=== PATIENT | male | born 1990 | race Caucasian/White ===

== ENCOUNTER 2016-11-15 19:33 | Emergency (ER) | payer BC ==
[2016-11-15 19:49] VITALS: BP 109/66
--- NOTE | 2016-11-15 20:45 | UC ---
FLU HPI - HPI Summary HPI Summary: ONSET OF MYALGIAS, FEVER, NAUSEA AND GARCIA THIS MORNING. NO FLU SHOT THIS SEASON. - History of Current Complaint Chief Complaint: UCGeneralIllness Stated Complaint: FEVER Time Seen by Provider: 11/15/16 20:36 Hx Obtained From: Patient Onset/Duration: Sudden Onset, Lasting Hours, Still Present Severity Currently: Moderate Severity Initially: Moderate Pain Intensity: 8 Pain Scale Used: 0-10 Numeric Associated Signs & Symptoms: Positive: Fever, Myalgia, Headache. Negative: Cough, Vomiting, Diarrhea - Allergy/Home Medications Allergies/Adverse Reactions: Allergies Allergy/AdvReac Type Severity Reaction Status Date / Time Azithromycin [From Zithromax] Allergy Severe Dizziness Verified 11/15/16 19:50 Cefaclor [From Ceclor] Allergy Severe Anaphylatic Verified 11/15/16 19:50 Shock Tetracycline Allergy Severe Anaphylatic Verified 11/15/16 19:50 Shock Esomeprazole [From Nexium] AdvReac Intermediate GI Upset Verified 11/15/16 19:50 PMH/Surg Hx/FS Hx/Imm Hx Cardiovascular History Of: Reports: Cardiac Disorders - EPISODES OF RAPID HEART RATE Psychological History Of: Reports: Anxiety, Depression - Surgical History Surgical History: None - Family History Known Family History: Positive: Hypertension - Social History Alcohol Use: None Substance Use Type: None Smoking Status (MU): Never Smoked Tobacco Have You Smoked in the Last Year: No Review of Systems Constitutional: Fever, Chills, Fatigue Respiratory: Negative Cardiovascular: Negative Gastrointestinal: Other - NAUSEA Musculoskeletal: Myalgia Neurological: Headache All Other Systems Reviewed And Are Negative: Yes Physical Exam Triage Information Reviewed: Yes Appearance: Well-Appearing, No Pain Distress, Well-Nourished Vital Signs: Initial Vital Signs Temp 100.4 F 11/15/16 19:46 Pulse 116 11/15/16 19:46 Resp 18 11/15/16 19:46 BP 109/66 11/15/16 19:46 Pulse Ox 97 11/15/16 19:46 Vital Signs Reviewed: Yes Eyes: Positive: Conjunctiva Clear ENT: Positive: Hearing grossly normal, Pharynx normal, TMs normal Neck: Positive: Supple, Nontender, No Lymphadenopathy Respiratory Exam: Normal Cardiovascular: Positive: Tachycardia Abdomen Description: Positive: Soft Musculoskeletal: Positive: No Edema Neurological: Positive: Alert Psychological: Positive: Age Appropriate Behavior Skin: Negative: rashes Diagnostics - Laboratory Diagnostic Studies Completed/Ordered: RAPID FLU NEGATIVE Flu Course/Dx - Differential Dx/Diagnosis Provider Diagnoses: ACUTE VIRAL SYNDROME Discharge - Discharge Plan Condition: Stable Disposition: HOME Patient Education Materials: Viral Syndrome (ED) Forms: *Work Release Referrals: Raphael Gardner MD [Primary Care Provider] - If Needed Additional Instructions: RAPID FLU NEGATIVE. CONSERVATIVE MGMT. REST, HYDRATE, OTC MEDS NEEDED. VIRAL SYNDROME: The physician has diagnosed a viral infection. Viruses not only cause "colds," but can cause many different symptoms including generalized aching, fever, headache, cough, diarrhea, nausea, vomiting, and fatigue. The treatment, for the most part, is simply relief of symptoms. This means that antibiotics are usually not given. Rest, fluids, pain medications and, occasionally, medication for the specific symptoms that are most bothersome will be prescribed. Contact the physician if you develop any new or unusual symptoms such as severe headache, stiff neck, high fever, chest pain, productive cough, or shortness of breath. You should be rechecked if you don't see marked improvement within seven to 10 days.
== END 2016-11-15 21:26 | disposition home or self-care (01) ==
LOC: UCEAST 19:33
DX: B34.9 Viral infection, unspecified (principal); Z88.1 Allergy status to other antibiotic agents; Z88.8 Allergy status to other drugs, medicaments and biological substances
CPT/HCPCS: 87502; 99211; G0463

== ENCOUNTER 2016-11-17 17:46 | Emergency (ER) | payer BC ==
[2016-11-17] MEDS ORDERED: Ondansetron INJ* 2 MG/ML VIAL IV ONE (18:03)
[2016-11-17] MEDS ORDERED: NS 0.9% 1000 ML* 1,000 ML IV ONE (18:03)
[2016-11-17] MEDS ORDERED: Ketorolac INJ* 30 MG/ML 1 ML VIAL IM ONE (18:03)
[2016-11-17 18:36] LABS: Hematocrit 49 % (42-52); Hemoglobin 16.8 g/dl (14.0-18.0); Mean Corpuscular HGB Conc 34 g/dl (31-36); Mean Corpuscular Hemoglobin 29 pg (27-31); Mean Corpuscular Volume 83 fL (80-94); Mean Platelet Volume 6 um3 (7.4-10.4); Red Cell Distribution Width 13 % (10.5-15); White Blood Count 5.9 10^3/ul (3.5-10.8)
[2016-11-17 18:51] LABS: Albumin 3.8 g/dL (3.2-5.2); BUN/Creatinine Ratio 9.3 (8-20); C Reactive Protein 6.89 mg/L (< 5.00); Calcium 8.5 mg/dL (8.6-10.3); EGFR African American 160.7 (>60); EGFR Non-African American 124.9 (>60); Globulin 2.4 g/dL (2-4); Potassium 3.2 mmol/L (3.5-5.0); Total Bilirubin 0.8 mg/dL (0.2-1.0); Total Protein 6.2 g/dL (6.4-8.9)
[2016-11-17] MEDS ORDERED: Iohexol 300* (CONTRAST) 10 ML SDV IV ONE (20:12)
--- NOTE | 2016-11-17 20:46 | RAD ---
INDICATION: Right lower quadrant pain COMPARISON: None TECHNIQUE: Axial source images were obtained from the hemidiaphragms to the symphysis pubis following administration of oral and intravenous contrast. 112 mL Omnipaque 300 was utilized. Coronal and sagittal reconstructed images were acquired. Lung bases: The lung bases are clear. Liver: The liver is normal in size. There are no masses. There is no ductal dilatation. Gallbladder: There are no calcified gallstones. There is no evidence of wall thickening or pericholecystic fluid. Spleen: The spleen is normal in size. There are no masses. Pancreas: There is no focal pancreatic mass or ductal dilatation. Adrenal glands: There is no evidence of adrenal mass. Kidneys: The kidneys are normal in size and position. There are prompt nephrograms and there is prompt excretion bilaterally. There are no renal parenchymal masses. There is no evidence of nephrolithiasis. Adenopathy: There is no evidence of adenopathy by size criteria. Fluid collections: There are no free or localized fluid collections. Vessels:There are no significant atherosclerotic changes involving the aorta. There is no focal aneurysm. The iliac vessels are normal in caliber. The IVC appears normal. GI tract: There are no acute CT bowel findings. There is no obstruction. The stomach and small bowel appear normal. The lower GI tract is normal. The cecum, ileocecal valve, and terminal ileum appear normal. The appendix is visualized. There is no periappendiceal inflammatory change. Pelvic organs: The prostate and seminal vesicles appear normal Bladder: There are no bladder masses. Abdominal and pelvic soft tissues: The extraperitoneal abdominal and pelvic soft tissues appear normal.. Osseous structures: There are no acute osseous findings. Other: None IMPRESSION: No acute CT findings. No mass or inflammatory changes. The appendix is not visualized. There are no periappendiceal inflammatory changes.
[2016-11-17 20:55] LABS: Urine Bilirubin Negative (Negative); Urine Glucose Negative (Negative); Urine Nitrite Negative (Negative)
[2016-11-17 21:38] VITALS: BP 108/73
--- NOTE | 2016-11-18 13:22 | ED ---
Abdominal Pain/Male - HPI Summary HPI Summary: Patient is an otherwise healthy 26yo M who presents to ED with CC of RLQ pain x4 days. Denies fever. Associated nausea, diarrhea and fatigue. Patient was seen in UC 4 days ago and diagnosed with gastroenteritis, but symptoms have not resolved. Last BM this morning and green in color. Denies changes of eating habits. Denies recent illness. Denies sick contacts and travel. Patient is concerned with appendicitis. Abdominal pain is not associated with food and presents intermittently. While most pain is located in RLQ, patient also has been experiencing pain in suprapubic region. Denies other urinary symptoms. Pain is not worse at a specific time of day. - History of Current Complaint Chief Complaint: EDAbdPain Stated Complaint: ABD PAIN Time Seen by Provider: 11/17/16 17:53 Hx Obtained From: Patient Onset/Duration: Sudden Onset Timing: Intermittent Severity Initially: Mild Severity Currently: Mild Pain Intensity: 2 Pain Scale Used: 0-10 Numeric Location: Discrete At: RLQ, Suprapubic Radiates: No Character: Sharp, Cramping Aggravating Factor(s): Nothing Alleviating Factor(s): Nothing Associated Signs And Symptoms: Positive: Nausea, Diarrhea - Risk Factors Testicular Torsion: Negative Cardiac Risk Factors: Negative - Allergies/Home Medications Allergies/Adverse Reactions: Allergies Allergy/AdvReac Type Severity Reaction Status Date / Time Azithromycin [From Zithromax] Allergy Severe Dizziness Verified 11/15/16 19:50 Cefaclor [From Ceclor] Allergy Severe Anaphylatic Verified 11/15/16 19:50 Shock Tetracycline Allergy Severe Anaphylatic Verified 11/15/16 19:50 Shock Esomeprazole [From Nexium] AdvReac Intermediate GI Upset Verified 11/15/16 19:50 PMH/Surg Hx/FS Hx/Imm Hx Previously Healthy: Yes Cardiovascular History: Reports: Hx Hypertension Psychiatric History: Reports: Hx Anxiety, Hx Depression Infectious Disease History: No Infectious Disease History: Denies: Hx Clostridium Difficile, Hx Hepatitis, Hx Human Immunodeficiency Virus (HIV), Hx of Known/Suspected MRSA, Hx Shingles, Hx Tuberculosis, Hx Known/ Suspected VRE, Hx Known/Suspected VRSA, History Other Infectious Disease, Traveled Outside the [place] in Last 30 Days - Family History Known Family History: Positive: Hypertension - Social History Occupation: Employed Full-time Lives: With Family Alcohol Use: None Hx Substance Use: No Substance Use Type: Reports: None Hx Tobacco Use: No Smoking Status (MU): Never Smoked Tobacco Have You Smoked in the Last Year: No Review of Systems Constitutional: Negative Eyes: Negative Cardiovascular: Negative Positive: Abdominal Pain, Diarrhea, Nausea Positive: no symptoms reported, see HPI Musculoskeletal: Negative Skin: Negative Neurological: Negative Psychological: Normal All Other Systems Reviewed And Are Negative: Yes Physical Exam Triage Information Reviewed: Yes Vital Signs On Initial Exam: Initial Vitals Temp Pulse Resp BP Pulse Ox 98.9 F 93 16 114/73 100 11/17/16 17:46 11/17/16 17:46 11/17/16 17:46 11/17/16 17:46 11/17/16 17:46 Vital Signs Reviewed: Yes Appearance: Positive: Well-Appearing, Well-Nourished Skin: Positive: Warm, Skin Color Reflects Adequate Perfusion Head/Face: Positive: Normal Head/Face Inspection Eyes: Positive: EOMI, ANGELLA Neck: Positive: Nontender, No Lymphadenopathy Respiratory/Lung Sounds: Positive: Clear to Auscultation, Breath Sounds Present Cardiovascular: Positive: Pulses are Symmetrical in both Upper and Lower Extremities Abdomen Description: Positive: Guarding, Other: - suprapubic pain on palpation, RLQ pain on palpation, bowel sounds normal throughout all 4 quadrants slight guarding during examination. no other acute findings. Rovsing negative. Obturator positive. Musculoskeletal: Positive: Strength/ROM Intact Neurological: Positive: Sensory/Motor Intact, Alert, Oriented to Person Place, Time, Speech Normal Psychiatric: Positive: Normal AVPU Assessment: Alert - [place] Coma Scale Coma Scale Total: 15 Diagnostics - Vital Signs Vital Signs Temp Pulse Resp BP Pulse Ox 11/17/16 21:34 96 97 11/17/16 21:31 108/73 11/17/16 20:24 83 98 11/17/16 20:00 86 134/95 98 11/17/16 19:30 88 119/78 98 11/17/16 19:00 99 131/88 96 11/17/16 18:55 87 96 11/17/16 18:53 133/88 11/17/16 17:46 98.9 F 93 16 114/73 100 - Laboratory Lab Results: Lab Results 11/17/16 11/17/16 11/17/16 Range/Units 18:27 18:27 20:46 WBC 5.9 (3.5-10.8) 10^3/ul RBC 5.90 H (4.0-5.4) 10^6/ul Hgb 16.8 (14.0-18.0) g/dl Hct 49 (42-52) % MCV 83 (80-94) fL MCH 29 (27-31) pg MCHC 34 (31-36) g/dl RDW 13 (10.5-15) % Plt Count 197 (150-450) 10^3/ul MPV 6 L (7.4-10.4) um3 Neut % (Auto) 66.4 (38-83) % Lymph % (Auto) 21.9 L (25-47) % [place] % (Auto) 9.5 H (1-9) % Eos % (Auto) 1.1 (0-6) % Baso % (Auto) 1.1 (0-2) % Absolute Neuts (auto) 3.9 (1.5-7.7) 10^3/ul Absolute Lymphs (auto) 1.3 (1.0-4.8) 10^3/ul Absolute Monos (auto) 0.6 (0-0.8) 10^3/ul Absolute Eos (auto) 0.1 (0-0.6) 10^3/ul Absolute Basos (auto) 0.1 (0-0.2) 10^3/ul Absolute Nucleated RBC 0.02 10^3/ul Nucleated RBC % 0.3 Sodium 136 (133-145) mmol/L Potassium 3.2 L (3.5-5.0) mmol/L Chloride 104 (101-111) mmol/L Carbon Dioxide 30 (22-32) mmol/L Anion Gap 2 (2-11) mmol/L BUN 7 (6-24) mg/dL Creatinine 0.75 (0.67-1.17) mg/dL Est GFR ( Amer) 160.7 (>60) Est GFR (Non-Af Amer) 124.9 (>60) BUN/Creatinine Ratio 9.3 (8-20) Glucose 108 H (70-100) mg/dL Calcium 8.5 L (8.6-10.3) mg/dL Total Bilirubin 0.80 (0.2-1.0) mg/dL AST 14 (13-39) U/L ALT 14 (7-52) U/L Alkaline Phosphatase 73 (34-104) U/L C-Reactive Protein 6.89 H (< 5.00) mg/L Total Protein 6.2 L (6.4-8.9) g/dL Albumin 3.8 (3.2-5.2) g/dL Globulin 2.4 (2-4) g/dL Albumin/Globulin Ratio 1.6 (1-3) Urine Color Yellow Urine Appearance Clear Urine pH 6.0 (5-9) Ur Specific [place] 1.023 (1.010-1.030) Urine Protein Negative (Negative) Urine Ketones Negative (Negative) Urine Blood Negative (Negative) Urine Nitrate Negative (Negative) Urine Bilirubin Negative (Negative) Urine Urobilinogen Negative (Negative) Ur Leukocyte Esterase Negative (Negative) Urine Glucose Negative (Negative) Result Diagrams: 11/17/16 18:27 11/17/16 18:27 Lab Statement: Any lab studies that have been ordered have been reviewed, and results considered in the medical decision making process. Abdominal Pain Fem Course/Dx - Course Course Of Treatment: CT abd/pelvis WNL. Fluids given. Encouraged fluids and nausea medication. Patient states he takes dramamine for nausea at home and does not require a prescription. He states he will follow up with his PCP. Reassurance given to patient this is most likely a gastroenteretis based on symptoms and negative CT, but cannot definitively identify the cause of patients symptoms. Encouraged to return to ED if symptoms return. Patient unable to give stool sample while in ED. Information given on gastroenteritis. Dx. Nausea and Diarrhea. Patient accepting of diagnoses and plan and will follow up. - Diagnoses Differential Diagnosis/HQI/PQRI: Appendicitis, Renal Colic, Urinary Tract Infection Provider Diagnoses: Diarrhea, Nausea - Provider Notifications Instructed by Provider To: Have Pt Call For Appt. Discharge - Discharge Plan Condition: Stable Disposition: HOME Patient Education Materials: Gastroenteritis (ED) Referrals: Raphael Gardner MD [Primary Care Provider] - Additional Instructions: Follow up with PCP. As discussed, CT shows no abnormalities. You may have gastroenteritis which is characterized by nausea, vomiting and diarrhea. If these symptoms do not improve in 2-3 days, come back to ED or follow up with your PCP. Drink plenty of fluids and rest.
== END 2016-11-17 21:38 | disposition home or self-care (01) ==
LOC: ED 17:46
DX: R10.31 Right lower quadrant pain (principal); R11.0 Nausea; R19.7 Diarrhea, unspecified; R53.83 Other fatigue
CPT/HCPCS: 36415; 74177; 80053; 81003; 85025; 86140; 96372; 96374; 99283; J1885; J2405; Q9967

== ENCOUNTER 2017-02-01 08:27 | Emergency (ER) | payer BC ==
[2017-02-01 09:00] VITALS: BP 139/73
--- NOTE | 2017-02-01 12:14 | UC ---
Complaint Male HPI - HPI Summary HPI Summary: PT C/O OF BRIGHT RED BLEED PER RECTUM ASSOCIATED WITH PAIN DURING BM NOTED LAST NIGHT AND ITCHING IN GENERAL. PT HAS BEEN NOTING OCCASIONAL BRIGHT RED BLOOD ON TOILET PAPER OVER THE PAST FEW MONTHS BUT HAS IGNORED IT UNTIL LAST NIGHT WHEN HE NOTED BLEEDING DURING A BM. BLEEDING HAS SINCE STOPPED AND PT HAS NO OTHER SX SUCH DIZZINESS, NAUSEA, SOB, CP. PT MAKENNA REPORTS THAT HE HAS BEEN USING A CHEAP TOILET PAPER AT WORK THAT OFTEN GIVES HIM A RASH. IT HAS BEEN EVALUATED PREVIOUSLY BY HIS PCP WHO GAVE HIM A CREAM TO TREAT IT. - History of Current Complaint Chief Complaint: UCGU Stated Complaint: BLEEDING FROM RECTUM Time Seen by Provider: 02/01/17 09:52 Pain Intensity: 0 Pain Scale Used: 0-10 Numeric - Allergies/Home Medications Allergies/Adverse Reactions: Allergies Allergy/AdvReac Type Severity Reaction Status Date / Time Azithromycin [From Zithromax] Allergy Severe Dizziness Verified 02/01/17 09:00 Cefaclor [From Ceclor] Allergy Severe Anaphylatic Verified 02/01/17 09:00 Shock Tetracycline Allergy Severe Anaphylatic Verified 02/01/17 09:00 Shock Esomeprazole [From Nexium] AdvReac Intermediate GI Upset Verified 02/01/17 09:00 Home Medications: Home Medications Acetaminophen [Acetaminophen Extra Stren] 2 tab PO Q6HR PRN 02/01/17 [History Confirmed 02/01/17] Fludrocortisone Acetate TAB* [Florinef TAB*] 1 tab PO DAILY 02/01/17 [History Confirmed 02/01/17] PMH/Surg Hx/FS Hx/Imm Hx Cardiovascular History Of: Reports: Cardiac Disorders - "Blood doesn't flow properly in heart", Hypertension Psychological History Of: Reports: Anxiety, Depression - Surgical History Surgical History: None - Family History Known Family History: Positive: Hypertension, Diabetes - Social History Alcohol Use: None Substance Use Type: None Smoking Status (MU): Never Smoked Tobacco Have You Smoked in the Last Year: No - Immunization History Most Recent Influenza Vaccination: none Physical Exam Vital Signs: Initial Vital Signs Temp 97.9 F 02/01/17 08:55 Pulse 81 02/01/17 08:55 Resp 16 02/01/17 08:55 BP 139/73 02/01/17 08:55 Pulse Ox 97 02/01/17 08:55 Discharge - Discharge Plan Prescriptions: Hydrocortisone 0.5% OINT* 1 applic TOPICAL ONCE #1 tube Hydrocortisone SUPP* [Anusol HC Supp*] 25 mg [place] BID #1 box Psyllium [Metamucil Fiber] 51.7 % PO DAILY #1 box Patient Education Materials: Hemorrhoids (ED), Contact Dermatitis (ED), Laxative, Bulk-forming (By mouth), Hydrocortisone (Into the rectum) Referrals: Raphael Gardner MD [Primary Care Provider] - If Needed
--- NOTE | 2017-02-01 12:23 | UC ---
Abdominal Pain Male HPI - HPI Summary HPI Summary: PT C/O OF BRIGHT RED BLEED PER RECTUM ASSOCIATED WITH PAIN DURING BM NOTED LAST NIGHT AND ITCHING IN GENERAL. PT HAS BEEN NOTING OCCASIONAL BRIGHT RED BLOOD ON TOILET PAPER OVER THE PAST FEW MONTHS BUT HAS IGNORED IT UNTIL LAST NIGHT WHEN HE NOTED BLEEDING DURING A BM. BLEEDING HAS SINCE STOPPED AND PT HAS NO OTHER SX SUCH DIZZINESS, NAUSEA, SOB, CP. PT MAKENNA REPORTS THAT HE HAS BEEN USING A CHEAP TOILET PAPER AT WORK THAT OFTEN GIVES HIM A RASH. IT HAS BEEN EVALUATED PREVIOUSLY BY HIS PCP WHO GAVE HIM A CREAM TO TREAT IT. - History of Current Complaint Chief Complaint: UCGU Stated Complaint: BLEEDING FROM RECTUM Time Seen by Provider: 02/01/17 09:52 Hx Obtained From: Patient Onset/Duration: Gradual Onset, Lasting Weeks, Resolved, Worse Since Severity Initially: Moderate Severity Currently: Moderate Pain Intensity: 0 Pain Scale Used: 0-10 Numeric Location: Other - ANUS Radiates: No Character: Burning, Sharp, Other - ITCHY Aggravating Factor(s):: Nothing - BM Alleviating Factor(s): Spontaneous Resolution Associated Signs And Symptoms: Negative: Diaphoresis, Fever, Dizzy, Urinary Symptoms, Nausea, Penile Discharge - Allergies/Home Medications Allergies/Adverse Reactions: Allergies Allergy/AdvReac Type Severity Reaction Status Date / Time Azithromycin [From Zithromax] Allergy Severe Dizziness Verified 02/01/17 09:00 Cefaclor [From Ceclor] Allergy Severe Anaphylatic Verified 02/01/17 09:00 Shock Tetracycline Allergy Severe Anaphylatic Verified 02/01/17 09:00 Shock Esomeprazole [From Nexium] AdvReac Intermediate GI Upset Verified 02/01/17 09:00 Home Medications: Home Medications Acetaminophen [Acetaminophen Extra Stren] 2 tab PO Q6HR PRN 02/01/17 [History Confirmed 02/01/17] Fludrocortisone Acetate TAB* [Florinef TAB*] 1 tab PO DAILY 02/01/17 [History Confirmed 02/01/17] PMH/Surg Hx/FS Hx/Imm Hx - Additional Past Medical History Additional PMH: IBS Cardiovascular History Of: Reports: Cardiac Disorders - "Blood doesn't flow properly in heart", Hypertension GI/ History Of: Reports: Gastroesophageal Reflux Psychological History Of: Reports: Anxiety, Depression - Surgical History Surgical History: None - Family History Known Family History: Positive: Cardiac Disease, Hypertension, Diabetes - Social History Alcohol Use: None Substance Use Type: None Smoking Status (MU): Never Smoked Tobacco Have You Smoked in the Last Year: No - Immunization History Most Recent Influenza Vaccination: none Review of Systems Constitutional: Negative Skin: Rash Respiratory: Negative Cardiovascular: Negative Gastrointestinal: Other - SEE HPI Genitourinary: Negative Neurological: Negative Psychological: Negative All Other Systems Reviewed And Are Negative: Yes Physical Exam Triage Information Reviewed: Yes Appearance: Well-Appearing, No Pain Distress, Well-Nourished Vital Signs: Initial Vital Signs Temp 97.9 F 02/01/17 08:55 Pulse 81 02/01/17 08:55 Resp 16 02/01/17 08:55 BP 139/73 02/01/17 08:55 Pulse Ox 97 02/01/17 08:55 Vital Signs Reviewed: Yes Eyes: Positive: Conjunctiva Clear. Negative: Discharge ENT: Positive: Hearing grossly normal. Negative: Muffled/hoarse voice Neck: Positive: Supple Respiratory: Positive: Lungs clear, Normal breath sounds, No respiratory distress, No accessory muscle use Cardiovascular: Positive: RRR, No Murmur Abdomen Description: Positive: Nontender, Soft, Other: - RECTAL EXAM REVEALS TENDER HEMMORRHOID AT 7 OCLOCK. NO BLEEDING NOTED AT TIME OF EXAM. Negative: Distended, Guarding, [place]'s Point Tenderness Bowel Sounds: Positive: Present Musculoskeletal Exam: Normal Neurological: Positive: Alert, Muscle Tone Normal Psychological: Positive: Age Appropriate Behavior Skin: Positive: rashes - RASH AT THE PROXIMAL END OF GLUTEAL CLEFT. ERYTHEMATOUS MACULAR RASH WITH NO INDURATION, NO SWELLING, NO FLUCTUALANCE, NO DRAINAGE. NO SIG CALOR. PT DOES REORT MINIMAL SUPERFIAICAL TENDERNES AND ITCHINESS. (PT HAS HAD THIS KIND RASH INTERMITTANTLY IN THE PAST FROM CHEAP TOILET PAPER) Abd Pain Male Course/Dx - Differential Dx/Clinical Impression Provider Diagnoses: CONTACT DERMATITIS, HEMMORRHOID Discharge - Discharge Plan Condition: Stable Disposition: HOME Prescriptions: Hydrocortisone 0.5% OINT* 1 applic TOPICAL ONCE #1 tube Hydrocortisone SUPP* [Anusol HC Supp*] 25 mg [place] BID #1 box Psyllium [Metamucil Fiber] 51.7 % PO DAILY #1 box Patient Education Materials: Laxative, Bulk-forming (By mouth), Hydrocortisone (Into the rectum), Hemorrhoids (ED), Contact Dermatitis (ED) Referrals: Raphael Gardner MD [Primary Care Provider] - If Needed
== END 2017-02-01 11:05 | disposition home or self-care (01) ==
LOC: UCEAST 08:27
DX: L25.9 Unspecified contact dermatitis, unspecified cause (principal); K64.9 Unspecified hemorrhoids
CPT/HCPCS: 99212; G0463

== ENCOUNTER 2017-05-11 07:30 | Emergency (ER) | payer BC, MEDICAID ==
--- NOTE | 2017-05-11 07:32 | UC ---
Skin Complaint HPI - History of Current Complaint Time Seen by Provider: 05/11/17 07:31 Stated Complaint: RASH RECTAL BLEEDING Hx Obtained From: Patient Onset/Duration: Sudden Onset Skin Exposure Onset/Duration: Hours Ago Onset Severity: Moderate Current Severity: Moderate - Allergy/Home Medications Allergies/Adverse Reactions: Allergies Allergy/AdvReac Type Severity Reaction Status Date / Time Azithromycin [From Zithromax] Allergy Severe Dizziness Verified 02/01/17 09:00 Cefaclor [From Ceclor] Allergy Severe Anaphylatic Verified 02/01/17 09:00 Shock Tetracycline Allergy Severe Anaphylatic Verified 02/01/17 09:00 Shock Esomeprazole [From Nexium] AdvReac Intermediate GI Upset Verified 02/01/17 09:00 Review of Systems Constitutional: Negative Skin: Rash Eyes: Negative ENT: Negative Respiratory: Negative Cardiovascular: Negative Gastrointestinal: Negative Genitourinary: Negative Motor: Negative Neurovascular: Negative Musculoskeletal: Negative Neurological: Negative Psychological: Negative All Other Systems Reviewed And Are Negative: Yes PMH/Surg Hx/FS Hx/Imm Hx - Surgical History Surgical History: None - Family History Known Family History: Positive: Cardiac Disease, Hypertension, Diabetes - Social History Alcohol Use: None Substance Use Type: None Smoking Status (MU): Never Smoked Tobacco Have You Smoked in the Last Year: No - Immunization History Most Recent Influenza Vaccination: none Physical Exam Triage Information Reviewed: Yes Eye Exam: Normal ENT Exam: Normal Dental Exam: Normal Neck exam: Normal Neck: Positive: 1 Respiratory Exam: Normal Cardiovascular Exam: Normal Abdominal Exam: Normal Musculoskeletal Exam: Normal Neurological Exam: Normal Psychological Exam: Normal Skin: Positive: rashes Course/Dx - Diagnoses Provider Diagnoses: RASH. RECTAL BLEEDING
[2017-05-11 08:05] VITALS: BP 122/73
--- NOTE | 2017-05-11 08:20 | ED ---
GI/ HPI - HPI Summary HPI Summary: 26M presents with rash for a couple months. He was seen here and diagnosed with hemorrhoids. He states rash has been spreading. Has had rash in the past and states that was given a medication a couple years ago that made it better. He has been placing hydrocortisone on the area. He denies any fever, nausea, vomiting, diarrhea or constipation. He states that his hemorrhoids bleed when he wipes. He ran out of medication for his hemorrhoids. - History of Current Complaint Chief Complaint: UCGI Time Seen by Provider: 05/11/17 07:31 Stated Complaint: RASH RECTAL BLEEDING - Allergy/Home Medications Allergies/Adverse Reactions: Allergies Allergy/AdvReac Type Severity Reaction Status Date / Time Azithromycin [From Zithromax] Allergy Severe Dizziness Verified 05/11/17 07:53 Cefaclor [From Ceclor] Allergy Severe Anaphylatic Verified 05/11/17 07:53 Shock Tetracycline Allergy Severe Anaphylatic Verified 05/11/17 07:53 Shock Esomeprazole [From Nexium] AdvReac Intermediate GI Upset Verified 05/11/17 07:53 PMH/Surg Hx/FS Hx/Imm Hx Endocrine/Hematology History: Denies: Hx Diabetes, Hx Thyroid Disease Cardiovascular History: Denies: Hx Hypertension Respiratory History: Denies: Hx Asthma, Hx Chronic Obstructive Pulmonary Disease (COPD) GI History: Denies: Hx Ulcer Psychiatric History: Reports: Hx Anxiety, Hx Depression Infectious Disease History: No Infectious Disease History: Denies: Hx Clostridium Difficile, Hx Hepatitis, Hx Human Immunodeficiency Virus (HIV), Hx of Known/Suspected MRSA, Hx Shingles, Hx Tuberculosis, Hx Known/ Suspected VRE, Hx Known/Suspected VRSA, History Other Infectious Disease, Traveled Outside the [place] in Last 30 Days - Family History Known Family History: Positive: Cardiac Disease, Hypertension, Diabetes - Social History Alcohol Use: None Hx Substance Use: No Substance Use Type: Reports: None Hx Tobacco Use: No Smoking Status (MU): Never Smoked Tobacco Have You Smoked in the Last Year: No Review of Systems Negative: Fever Negative: Chest Pain Negative: Shortness Of Breath Positive: Other - hemorrhoids Positive: Rash All Other Systems Reviewed And Are Negative: Yes Physical Exam Triage Information Reviewed: Yes Vital Signs On Initial Exam: Initial Vitals Temp Pulse Resp BP Pulse Ox 99.7 F 84 16 122/73 97 05/11/17 07:56 05/11/17 07:56 05/11/17 07:56 05/11/17 07:56 05/11/17 07:56 Vital Signs Reviewed: Yes Appearance: Positive: Well-Appearing Skin: Positive: Warm, Dry, Other - erythematous plaques with scaling around anus and down to underneath scrotum with no abscess felt Head/Face: Positive: Normal Head/Face Inspection Eyes: Positive: Normal, Conjunctiva Clear Respiratory/Lung Sounds: Positive: Clear to Auscultation, Breath Sounds Present Cardiovascular: Positive: Normal, RRR Abdomen Description: Positive: Nontender, Soft Bowel Sounds: Positive: Present Diagnostics - Vital Signs Vital Signs Temp Pulse Resp BP Pulse Ox 05/11/17 07:56 99.7 F 84 16 122/73 97 - Laboratory Lab Statement: Any lab studies that have been ordered have been reviewed, and results considered in the medical decision making process. GIGU Course/Dx - Course Course Of Treatment: 26M presents with rash for a couple months. He was seen here and diagnosed with hemorrhoids. He states rash has been spreading. Has had rash in the past and states that was given a medication a couple years ago that made it better. He has been placing hydrocortisone on the area. He denies any fever, nausea, vomiting, diarrhea or constipation. He states that his hemorrhoids bleed when he wipes. He ran out of medication for his hemorrhoids. on exam has erythemaous rash with scaling. will treat with antifungal and sent script for suppository again. patient understands and agrees with plan. - Diagnoses Differential Diagnoses - Male: Hemorrhoids, Rectal Fissure, Other - tinea Provider Diagnoses: Hemorrhoids, Tinea versicolor Discharge - Discharge Plan Condition: Good Disposition: HOME Prescriptions: Clotrimazole 1% CREAM* [Clotrimazole 1%*] 1 applic TOPICAL BID #1 tube Hydrocortisone SUPP* [Anusol Hc Supp*] 25 mg VT DAILY #1 box Patient Education Materials: Hemorrhoids (ED), Tinea Versicolor (ED) Referrals: Raphael Gardner MD [Primary Care Provider] - Additional Instructions: Place antifungal medication on rash twice a day until rash resolve Use preparation H for hemorrhoids Follow up with primary to make sure rash is resolving Return to ED if develop any new or worsening symptoms
== END 2017-05-11 08:30 | disposition home or self-care (01) ==
LOC: UCEAST 07:30
DX: K64.9 Unspecified hemorrhoids (principal); B36.0 Pityriasis versicolor; F41.9 Anxiety disorder, unspecified; F32.9 Major depressive disorder, single episode, unspecified; Z88.1 Allergy status to other antibiotic agents
CPT/HCPCS: 99212; G0463

== ENCOUNTER 2017-05-22 13:18 | Emergency (ER) | payer MEDICAID ==
[2017-05-22 15:00] VITALS: BP 111/71
--- NOTE | 2017-05-22 16:53 | UC ---
Rectal Pain HPI - HPI Summary HPI Summary: Pt c/o of intermittent BRBPR with BM in the last 2-3 days. Pt has history of hemorrhoids and thinks that he can feel an external hemorrhoid with BM. C/o rectal pain with sustained standing and ambulation. - History Of Current Complaint Chief Complaint: UCGI Stated Complaint: PERSONAL Time Seen by Provider: 05/22/17 15:00 Hx Obtained From: Patient Onset/Duration: Gradual Onset, Lasting Days Timing: Constant Severity Initially: Mild Severity Currently: Mild Pain Intensity: 5 Pain Scale Used: 0-10 Numeric Location Of Pain: Anal Character: Sharp, Dull, Itching Aggravating Factor(s): Bowel Movement, Walking Alleviating Factor(s): Suppositories - hemorrhoid OTC suppository with no improvement Associated Signs And Symptoms: Positive: Bright Red Blood w/Stool, External Hemorrhoid - possible Related History: Hemorrhoids - Allergies/Home Medications Allergies/Adverse Reactions: Allergies Allergy/AdvReac Type Severity Reaction Status Date / Time Azithromycin [From Zithromax] Allergy Severe Dizziness Verified 05/22/17 15:01 Cefaclor [From Ceclor] Allergy Severe Anaphylatic Verified 05/22/17 15:01 Shock Tetracycline Allergy Severe Anaphylatic Verified 05/22/17 15:01 Shock Esomeprazole [From Nexium] AdvReac Intermediate GI Upset Verified 05/22/17 15:01 PMH/Surg Hx/FS Hx/Imm Hx Previously Healthy: Yes GI/ History: Other - IBS Other GI/ History: IBS - Surgical History Surgical History: None - Family History Known Family History: Positive: Cardiac Disease, Hypertension, Diabetes - Social History Occupation: Employed Full-time Lives: With Family Alcohol Use: None Substance Use Type: None Smoking Status (MU): Never Smoked Tobacco Have You Smoked in the Last Year: No - Immunization History Most Recent Influenza Vaccination: none Review of Systems Constitutional: Negative Skin: Negative Eyes: Negative ENT: Negative Respiratory: Negative Cardiovascular: Negative Gastrointestinal: Other - BRBPR occasional with BM Genitourinary: Negative Motor: Negative Neurovascular: Negative Musculoskeletal: Negative Neurological: Negative Psychological: Negative Is Patient Immunocompromised?: No All Other Systems Reviewed And Are Negative: Yes Physical Exam Triage Information Reviewed: Yes Appearance: Well-Appearing Vital Signs: Initial Vital Signs Temp 97.5 F 05/22/17 14:55 Pulse 67 05/22/17 14:55 Resp 14 05/22/17 14:55 BP 111/71 05/22/17 14:55 Pulse Ox 100 05/22/17 14:55 Vital Signs Reviewed: Yes Eye Exam: Normal ENT Exam: Normal Neck exam: Normal Respiratory Exam: Normal Cardiovascular Exam: Normal Abdominal Exam: Normal Abdomen Description: Positive: Nontender, Other: - negative guiac stool, internal hemorrhoid felt with rectal exam Bowel Sounds: Positive: Present Musculoskeletal Exam: Normal Neurological Exam: Normal Psychological Exam: Normal Skin Exam: Normal Rectal Pain Course/Dx - Differential Dx/Diagnosis Differential Diagnosis/HQI/PQRI: Hemorrhoid(s) Provider Diagnoses: internal hemorrhoids Discharge - Discharge Plan Condition: Stable Disposition: HOME Patient Education Materials: Hemorrhoids (ED) Referrals: Peña Duncan MD [Primary Care Provider] - If Needed (Please keep your appointment with your PCP as scheduled. We have provided a referral to a GI provider for you to follow up as needed. ) Moris Dyer MD [Medical Doctor] - Additional Instructions: Your guiac stool test was negative for blood.
== END 2017-05-22 15:45 | disposition home or self-care (01) ==
LOC: UCCORT 13:18
DX: K64.8 Other hemorrhoids (principal); Z88.3 Allergy status to other anti-infective agents; K58.9 Irritable bowel syndrome, unspecified
CPT/HCPCS: 82270; 99211; G0463

== ENCOUNTER 2017-07-08 18:06 | Emergency (ER) | payer OTHER | END 2017-07-08 19:26 | disposition left against medical advice (07) | LOC: UCCORT 18:06 | DX: N39.9 Disorder of urinary system, unspecified (principal); Z53.21 Procedure and treatment not carried out due to patient leaving prior to being seen by health care provider ==

== ENCOUNTER 2017-08-25 16:23 | Emergency (ER) | payer OTHER ==
[2017-08-25] MEDS ORDERED: Ondansetron INJ* 2 MG/ML VIAL IV ONE (17:15)
[2017-08-25] MEDS ORDERED: Al Hydrox/Mg Hydrox/Simet LIQ* 30 ML UDC PO ONE (17:16)
--- NOTE | 2017-08-25 17:22 | UC ---
Nausea/Vomiting/Diarrhea HPI - HPI Summary HPI Summary: 27 year old USOH until yesterday reports developing diarrhea yesterday. He had two episodes of diarrhea last night and this morning over 10 episodes of non- bloody diarrhea with several episodes of NBNB vomiting with subjective fever. He reports his [id number] and niece have similar symptoms. No other complaints. - History of Current Complaint Chief Complaint: UCGI Stated Complaint: GI UPSET Time Seen by Provider: 08/25/17 16:55 Timing: Constant Severity Initially: Moderate Severity Currently: Moderate Pain Scale Used: Adult Non Verbal Character: Sharp Aggravating Factor(s): Nothing Alleviating Factor(s): Nothing - Allergies/Home Medications Allergies/Adverse Reactions: Allergies Allergy/AdvReac Type Severity Reaction Status Date / Time Azithromycin [From Zithromax] Allergy Severe Dizziness Verified 08/25/17 16:51 Cefaclor [From Ceclor] Allergy Severe Anaphylatic Verified 08/25/17 16:51 Shock Tetracycline Allergy Severe Anaphylatic Verified 08/25/17 16:51 Shock Esomeprazole [From Nexium] AdvReac Intermediate GI Upset Verified 08/25/17 16:51 PMH/Surg Hx/FS Hx/Imm Hx - Surgical History Surgical History: None - Family History Known Family History: Positive: Cardiac Disease, Hypertension, Diabetes - Social History Alcohol Use: None Substance Use Type: None Smoking Status (MU): Never Smoked Tobacco Have You Smoked in the Last Year: No - Immunization History Most Recent Influenza Vaccination: none Review of Systems Constitutional: Fever Skin: Negative Eyes: Negative Gastrointestinal: Abdominal Pain, Vomiting, Diarrhea Genitourinary: Negative All Other Systems Reviewed And Are Negative: Yes Physical Exam Triage Information Reviewed: Yes Appearance: No Pain Distress, Well-Nourished Vital Signs: Initial Vital Signs Temp 36.2 C 08/25/17 16:48 Pulse 92 08/25/17 16:48 Resp 19 08/25/17 16:48 BP 100/68 08/25/17 16:48 Pulse Ox 97 08/25/17 16:48 Eye Exam: Normal ENT: Positive: Normal ENT inspection Respiratory: Positive: Chest non-tender, Lungs clear, Normal breath sounds Cardiovascular: Positive: RRR, No Murmur - diffuse slight tenderness with no guarding Abdomen Description: Positive: Nontender, No Organomegaly, Soft Neurological: Positive: Alert Skin Exam: Normal Re-Evaluation - Re-Evaluation First Eval Re-Evaluation Time: 21:20 Naus/Vom/Diarrhea Course/Dx - Course Course Of Treatment: Gastroenteritis. Symptomatic treatment. Reassess - Differential Dx/Diagnosis Differential Diagnoses - Male: Diverticulitis, Peptic Ulcer Disease, Diverticulosis, Gastroenteritis (Viral), Colitis, Gastritis Condition At Discharge: Good Discharge - Discharge Plan Condition: Good Disposition: HOME Prescriptions: Calcium Carbonate (Antacid) [Maalox] 600 mg PO Q8HR PRN #12 chw PRN Reason: Nausea Ondansetron [Zofran 4 MG Odt] 4 mg PO Q8HR PRN 3 Days #12 tab PRN Reason: Vomiting Patient Education Materials: Gastroenteritis (ED) Forms: *Work Release Referrals: Peña Duncan MD [Primary Care Provider] -
[2017-08-25] MEDS ORDERED: NS 0.9% 1000 ML* 1,000 ML IV SCH (17:30)
[2017-08-25] MEDS ORDERED: Acetaminophen TAB* 325 MG PO ONE (19:16)
[2017-08-25 19:17] VITALS: BP 137/68
== END 2017-08-25 19:35 | disposition home or self-care (01) ==
LOC: UCEAST 16:23
DX: K52.9 Noninfective gastroenteritis and colitis, unspecified (principal); Z88.1 Allergy status to other antibiotic agents; Z88.8 Allergy status to other drugs, medicaments and biological substances
CPT/HCPCS: 96360; 96374; 99212; A9270-GY; G0463; J2405

== ENCOUNTER 2018-04-11 09:49 | Emergency (ER) | payer MEDICAID, OTHER ==
[2018-04-11 10:21] VITALS: BP 108/75
--- NOTE | 2018-04-11 11:15 | UC ---
UC General HPI - HPI Summary HPI Summary: c/o itchiness, redness, and drainage coming from his umbilicus region for the past 2-3 months. Seen by PCP at [place] approx 2 months ago, rx for augmentin, but did not fill it d/t insurance didn't cover it. His insurance has since changed. The redness / itching were status quo until yesterday, when itchiness worsened and noted drainage yellow brown. Had been using astringents, but not in a long time. No other rash / sores currently. Has had periodic skin infections in the past, but not recently, reports that augmentin always works ( denies allergic type reaction while taking augmentin). Reports that a culture was sent at outlying facility a couple months ago, but does not know the results. No fever / chills. No sob / cp / palpitations. No current or recent GI upset, although in high school did have IBS age 16y. No mouth sores. Tet booster approx 1-2 yrs ago per pt report. - History of Current Complaint Chief Complaint: UCSkin Stated Complaint: SKIN COMPLAINT Time Seen by Provider: 04/11/18 11:08 Hx Obtained From: Patient Pain Intensity: 0 - Allergy/Home Medications Allergies/Adverse Reactions: Allergies Allergy/AdvReac Type Severity Reaction Status Date / Time azithromycin [From Zithromax] Allergy Dizziness Verified 04/11/18 11:08 cefaclor [From Ceclor] Allergy Anaphylatic Verified 04/11/18 11:08 Shock esomeprazole [From Nexium] Allergy GI Upset Verified 04/11/18 11:08 tetracycline Allergy Anaphylatic Verified 04/11/18 11:08 Shock PMH/Surg Hx/FS Hx/Imm Hx Previously Healthy: Yes - see hpi - Surgical History Surgical History: None - Family History Known Family History: Positive: Cardiac Disease, Hypertension, Diabetes - Social History Alcohol Use: None Substance Use Type: None Smoking Status (MU): Never Smoked Tobacco Have You Smoked in the Last Year: No - Immunization History Most Recent Influenza Vaccination: none Review of Systems Constitutional: Negative Skin: Other - see hpi Eyes: Negative ENT: Negative Respiratory: Negative Cardiovascular: Negative Gastrointestinal: Negative Genitourinary: Negative Motor: Negative Neurovascular: Negative Musculoskeletal: Negative Neurological: Negative Psychological: Negative Is Patient Immunocompromised?: No All Other Systems Reviewed And Are Negative: Yes Physical Exam Triage Information Reviewed: Yes Appearance: Well-Appearing, Well-Nourished Vital Signs: Initial Vital Signs Temp 98.9 F 04/11/18 10:16 Pulse 81 04/11/18 10:16 Resp 14 04/11/18 10:16 BP 108/75 04/11/18 10:16 Pulse Ox 99 04/11/18 10:16 Vital Signs Reviewed: Yes Eye Exam: Normal - grossly normal ENT Exam: Normal - grossly normal, mmm, denies mouth sores Neck exam: Normal Neck: Positive: Supple Respiratory Exam: Normal - no tachypnea, no dyspnea RR normal Cardiovascular Exam: Normal - Rate regular as noted on VS. Nondiaphoretic. Abdominal Exam: Normal - see "skin" re umb sore Abdomen Description: Positive: Nontender, Soft Musculoskeletal Exam: Normal - moves x 4 exts Neurological Exam: Normal - grossly nonfocal Psychological Exam: Normal - conversing easily and appropriately Skin Exam: Other - nondiaphoretic. Umbilicus deep with dried yellow brown drainage noted. Gentle probe to base without tenderness, scant drainage similar color. There is redness, partially blanching from the exterior of the umbilicus to the base. Course/Dx - Course Course Of Treatment: Reviewed wound care. Reviewed need for f/u pcp. Cx swab sent for routine wound culture, also fungal culture. Suspect concomitant fungal dermatitis. Questions as posed answered to the best of my ability. 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 Discharge - Sign-Out/Discharge Documenting (check all that apply): Patient Departure - Discharge Plan Condition: Stable Disposition: HOME Prescriptions: Amoxicillin/Clavulanate TAB* [Augmentin TAB 875*] 875 mg PO BID #14 tab Clotrimazole 1% CREAM* [Clotrimazole 1%*] 1 applic TOPICAL BID #1 tube Mupirocin 2% OINT* [Bactroban 2 % Oint*] 1 applic TOPICAL BID #1 tube Patient Education Materials: Wound Infection (ED) Referrals: Peña Duncan MD [Primary Care Provider] - Additional Instructions: Follow up with your primary care physician, call tomorrow to schedule appointment for the next 1-2 weeks. Seek medical attention for worse or new problems in the meantime. Avoid astringents (for example, avoid hydrogen peroxide, rubbing alcohol, strong antibacterial soaps). Ok to shower, pat dry, air dry. Apply THIN layer of 50/50 cortisone / mupirocin to the affected area twice daily for 21 days. Make sure that you see your doctor for follow up prior to completion of the treatment course. (Stop if redness worsens, and seek medical attention.) - Billing Disposition and Condition Condition: STABLE Disposition: Home
--- NOTE | 2018-04-12 09:01 | UC ---
- Progress Note Progress Note: MRSA neg S neg pt on Augmentin no change 04/12/2018 900 Discharge - Sign-Out/Discharge Documenting (check all that apply): Patient Departure - Discharge Plan Condition: Stable Disposition: HOME Prescriptions: Amoxicillin/Clavulanate TAB* [Augmentin TAB 875*] 875 mg PO BID #14 tab Clotrimazole 1% CREAM* [Clotrimazole 1%*] 1 applic TOPICAL BID #1 tube Mupirocin 2% OINT* [Bactroban 2 % Oint*] 1 applic TOPICAL BID #1 tube Patient Education Materials: Wound Infection (ED) Referrals: Peña Duncan MD [Primary Care Provider] - Additional Instructions: Follow up with your primary care physician, call tomorrow to schedule appointment for the next 1-2 weeks. Seek medical attention for worse or new problems in the meantime. Avoid astringents (for example, avoid hydrogen peroxide, rubbing alcohol, strong antibacterial soaps). Ok to shower, pat dry, air dry. Apply THIN layer of 50/50 cortisone / mupirocin to the affected area twice daily for 21 days. Make sure that you see your doctor for follow up prior to completion of the treatment course. (Stop if redness worsens, and seek medical attention.) - Billing Disposition and Condition Condition: STABLE Disposition: Home
== END 2018-04-11 11:50 | disposition home or self-care (01) ==
LOC: UCEAST 09:49
DX: S30.92XA Unspecified superficial injury of abdominal wall, initial encounter (principal); L30.9 Dermatitis, unspecified; Z88.1 Allergy status to other antibiotic agents; Z88.8 Allergy status to other drugs, medicaments and biological substances; X58.XXXA Exposure to other specified factors, initial encounter; Y92.9 Unspecified place or not applicable
CPT/HCPCS: 87070; 87102; 87205; 87640; 87641; 99212; G0463

== ENCOUNTER 2018-07-12 04:09 | Emergency (ER) | payer MEDICAID, OTHER ==
--- NOTE | 2018-07-12 04:52 | ED ---
Throat Pain/Nasal Congestion - HPI Summary HPI Summary: A 27 y/o M presents to ED with R-sided dental pain onset four days ago but worsening two days ago. Pt had his bottom R tooth removed four days ago at [facility]. Pt is taking ABX. Denies fever. Associated sx: mild drainage, pressure in neck. Pt is a non-smoker. He last took Tylenol at 0300 this date. PMHx: GERD, vasovagal syncope. - History of Current Complaint Chief Complaint: EDDentalPain Time Seen by Provider: 07/12/18 04:43 Hx Obtained From: Patient Onset/Duration: Gradual Onset, Lasting Days, Still Present Severity: Moderate - Allergies/Home Medications Allergies/Adverse Reactions: Allergies Allergy/AdvReac Type Severity Reaction Status Date / Time azithromycin [From Zithromax] Allergy Dizziness Verified 04/11/18 11:08 cefaclor [From Ceclor] Allergy Anaphylatic Verified 04/11/18 11:08 Shock esomeprazole [From Nexium] Allergy GI Upset Verified 04/11/18 11:08 tetracycline Allergy Anaphylatic Verified 04/11/18 11:08 Shock PMH/Surg Hx/FS Hx/Imm Hx Previously Healthy: No - vasovagal syncope Endocrine/Hematology History: Denies: Hx Diabetes, Hx Thyroid Disease Cardiovascular History: Denies: Hx Hypertension Respiratory History: Denies: Hx Asthma, Hx Chronic Obstructive Pulmonary Disease (COPD) GI History: Reports: Hx Gastroesophageal Reflux Disease Denies: Hx Ulcer Psychiatric History: Reports: Hx Anxiety, Hx Depression Infectious Disease History: No Infectious Disease History: Denies: Hx Clostridium Difficile, Hx Hepatitis, Hx Human Immunodeficiency Virus (HIV), Hx of Known/Suspected MRSA, Hx Shingles, Hx Tuberculosis, Hx Known/ Suspected VRE, Hx Known/Suspected VRSA, History Other Infectious Disease, Traveled Outside the [place] in Last 30 Days - Family History Known Family History: Positive: Cardiac Disease, Hypertension, Diabetes - Social History Occupation: Unemployed Lives: Alone Alcohol Use: None Hx Substance Use: No Substance Use Type: Reports: None Hx Tobacco Use: No Smoking Status (MU): Never Smoked Tobacco Have You Smoked in the Last Year: No Review of Systems Negative: Fever Positive: Dental Pain, Other - pos: drainage, pressure in neck All Other Systems Reviewed And Are Negative: Yes Physical Exam - Summary Physical Exam Summary: Appearance: Well appearing, no pain distress Skin: warm, dry, reflects adequate perfusion Head/face: normal Eyes: EOMI, ANGELLA ENT: mucous membranes moist Dental: gingival edema, 1st molar removed, grayish exudate in socket Neck: supple, non-tender, mild anterior cervical lymphadenopathy Respiratory: CTA, breath sounds present Cardiovascular: RRR, pulses symmetrical Abdomen: non-tender, soft Bowel Sounds: present Musculoskeletal: normal, strength/ROM intact Neuro: normal, sensory motor intact, A&Ox3 Triage Information Reviewed: Yes Vital Signs On Initial Exam: Initial Vitals Temp Pulse Resp BP Pulse Ox 97.9 F 87 18 129/88 99 07/12/18 04:16 07/12/18 04:16 07/12/18 04:16 07/12/18 04:16 07/12/18 04:16 Vital Signs Reviewed: Yes Procedures - Procedure Summary Procedure Summary: Irrigation of dry socket: The socket of the extracted first molar on the right lower jaw was irrigated with normal saline through an angiocatheter. Food debris was irrigated out. He felt much better afterwards. Loose packing with dry gauze was placed. Tolerated this well without complication. Diagnostics - Vital Signs Vital Signs Temp Pulse Resp BP Pulse Ox 07/12/18 04:16 97.9 F 87 18 129/88 99 - Laboratory Lab Statement: Any lab studies that have been ordered have been reviewed, and results considered in the medical decision making process. Re-Evaluation - Re-Evaluation 1 Re-Evaluation Time: 05:00 Change: Improved Comment: Irrigated socket and packed with gauze. Pt is feeling much better. EENT Course/Dx - Course Course Of Treatment: Patient with recent dental extraction and a socket that is full of food debris. The socket was irrigated out and his pain relieved relieved. I packed it with gauze. He is discharged to follow up with his dentist. He is already on antibiotic. - Diagnoses Provider Diagnoses: Alveolar osteitis Discharge - Sign-Out/Discharge Documenting (check all that apply): Patient Departure - DC - Discharge Plan Condition: Improved Disposition: HOME Patient Education Materials: Dry Socket (ED) Forms: *Work Release Referrals: Peña Duncan MD [Primary Care Provider] - Additional Instructions: Call [facility] in the morning to schedule follow-up. Continue antibiotics. Tylenol, ibuprofen as needed for discomfort. Return with fever, worse, new symptoms or other concerns. Gait the area and packed with gauze twice a day. - Billing Disposition and Condition Condition: IMPROVED Disposition: Home - Attestation Statements Document Initiated by Leticiaibe: Yes Documenting Scribe: Victor Manuel Roca Provider For Whom Scribe is Documenting (Include Credential): Dr. Ovidio Lim MD Scribe Attestation: I, Victor Manuel Roca, scribed for Dr. Ovidio Lim MD on 07/12/18 at 0719. Scribe Documentation Reviewed: Yes Provider Attestation: The documentation as recorded by the Victor Manuel chavez accurately reflects the service I personally performed and the decisions made by me, Dr. Ovidio Lim MD
[2018-07-12 05:24] VITALS: BP 122/82
== END 2018-07-12 05:22 | disposition home or self-care (01) ==
LOC: ED 04:09
DX: M27.3 Alveolitis of jaws (principal)
CPT/HCPCS: 99281

== ENCOUNTER 2018-10-22 18:13 | Emergency (ER) | payer OTHER ==
[2018-10-22 18:21] VITALS: BP 112/82
--- NOTE | 2018-10-22 18:22 | UC ---
Eye Complaint HPI - HPI Summary HPI Summary: 28 yo male presents with b/l eye redness and drainage. He tells me that he has been having a cold and sinus infection for the last week. He was started on Augmentin by his PCP 2 days ago for his sinus infection. Yesterday woke up with left eye red and crusted shut with yellow discharge. Today had same thing, but also in his right eye. He wears glasses, but never contacts. Denies fever, chills, or vision changes. No injury of FB into eye. - History of Current Complaint Chief Complaint: UCEye Stated Complaint: EYE IRRITATION, AND COUGH Time Seen by Provider: 10/22/18 18:21 Hx Obtained From: Patient Onset/Duration: Sudden Onset Severity Initially: Moderate Severity Currently: Moderate Pain Intensity: 5 - Allergies/Home Medications Allergies/Adverse Reactions: Allergies Allergy/AdvReac Type Severity Reaction Status Date / Time azithromycin [From Zithromax] Allergy Dizziness Verified 10/22/18 18:20 cefaclor [From Ceclor] Allergy Anaphylatic Verified 10/22/18 18:20 Shock esomeprazole [From Nexium] Allergy GI Upset Verified 10/22/18 18:20 tetracycline Allergy Anaphylatic Verified 10/22/18 18:20 Shock Home Medications: Home Medications Amoxicillin/Clavulanate TAB* [Augmentin TAB 875*] 875 mg PO BID 10/22/18 [ History Confirmed 10/22/18] Meclizine TAB* [Antivert 12.5 TAB*] 12.5 mg PO PRN 10/22/18 [History] PMH/Surg Hx/FS Hx/Imm Hx GI/ History: Gastroesophageal Reflux - Surgical History Surgical History: None - Family History Known Family History: Positive: Cardiac Disease, Hypertension, Diabetes - Social History Lives: With Family Alcohol Use: None Substance Use Type: None Smoking Status (MU): Never Smoked Tobacco Have You Smoked in the Last Year: No - Immunization History Most Recent Influenza Vaccination: none Review of Systems All Other Systems Reviewed And Are Negative: Yes Constitutional: Positive: Negative Skin: Positive: Negative Eyes: Positive: Drainage, Eye Redness ENT: Positive: Negative Respiratory: Positive: Negative Cardiovascular: Positive: Negative Gastrointestinal: Positive: Negative Neurovascular: Positive: Negative Neurological: Positive: Negative Psychological: Positive: Negative Physical Exam - Summary Physical Exam Summary: GENERAL: WDWN. No pain distress. SKIN: No rashes, sores, lesions, or open wounds. HEENT: Head: AT/NC Eyes: EOM intact. PERRLA. LEFT EYE: Mild scleral injection. Conjunctiva with moderate erythema and inflammation. Mild yellow discharge. RIGHT EYE: Mild scleral injection. Conjunctiva with mild erythema and inflammation. No discharge. Nose: NTTP maxillary and frontal sinus. NECK: Supple. Nontender. No lymphadenopathy. CHEST: No accessory muscle use. Breathing comfortably and in no distress. CV: Pulses intact. Cap refill <2seconds NEURO: Alert. PSYCH: Age appropriate behavior. Triage Information Reviewed: Yes Vital Signs: Initial Vital Signs Temp 97.6 F 10/22/18 18:17 Pulse 89 10/22/18 18:17 Resp 16 10/22/18 18:17 BP 112/82 10/22/18 18:17 Pulse Ox 100 10/22/18 18:17 Vital Signs Reviewed: Yes Eye Complaint Course/Dx - Course Course Of Treatment: B/L conjunctivitis - Differential Dx/Diagnosis Provider Diagnosis: Conjunctivitis Discharge - Sign-Out/Discharge Documenting (check all that apply): Patient Departure All imaging exams completed and their final reports reviewed: No Studies - Discharge Plan Condition: Stable Disposition: HOME Prescriptions: Fluticasone NASAL SPRAY 50MCG* [Flonase NASAL SPRAY 50MCG*] 2 spray BOTH NARES DAILY #1 btl Polymyx/Trimethoprim OPTH* [Polytrim OPHTH*] 1 drop BOTH EYES QID #1 btl Patient Education Materials: Conjunctivitis (ED) Referrals: Peña Duncan MD [Primary Care Provider] - Additional Instructions: If you develop a fever, shortness of breath, chest pain, new or worsening symptoms - please call your PCP or go to the ED. - Billing Disposition and Condition Condition: STABLE Disposition: Home
== END 2018-10-22 18:30 | disposition home or self-care (01) ==
LOC: UCEAST 18:13
DX: H10.9 Unspecified conjunctivitis (principal); Z88.1 Allergy status to other antibiotic agents; Z88.8 Allergy status to other drugs, medicaments and biological substances
CPT/HCPCS: 99212; G0463

== ENCOUNTER 2018-11-03 07:41 | Emergency (ER) | payer OTHER ==
[2018-11-03 07:55] VITALS: BP 111/70
--- NOTE | 2018-11-03 09:33 | UC ---
Respiratory Complaint HPI - HPI Summary HPI Summary: 5 DAYS OF COUGH, CHEST CONGESTION AND SUBJECTIVE LOW-GRADE FEVER. WAS SEEN 3 DAYS AGO AND TESTED FOR STREP WHICH WAS NEGATIVE. PATIENT WAS GIVEN PREDNISONE TO HELP HIS SYMPTOMS BUT HAS NOT PICKED THAT UP YET. STATES HIS THROAT IS BETTER NOW AND FEVER BROKE YESTERDAY BUT WAS CONCERNED ABOUT HIS COUGH. - History of Current Complaint Chief Complaint: UCRespiratory Stated Complaint: CHEST CONGEST Time Seen by Provider: 11/03/18 08:36 Hx Obtained From: Patient Onset/Duration: Gradual Onset, Lasting Days, Still Present Timing: Constant Severity Initially: Moderate Severity Currently: Moderate Pain Intensity: 0 Pain Scale Used: 0-10 Numeric Character: Cough: Productive Aggravating Factors: Nothing Alleviating Factors: Nothing Associated Signs And Symptoms: Positive: Fever, URI, Nasal Congestion. Negative : Dyspnea, Wheezing - Allergies/Home Medications Allergies/Adverse Reactions: Allergies Allergy/AdvReac Type Severity Reaction Status Date / Time azithromycin [From Zithromax] Allergy Dizziness Verified 10/31/18 08:49 cefaclor [From Ceclor] Allergy Anaphylatic Verified 10/31/18 08:49 Shock esomeprazole [From Nexium] Allergy GI Upset Verified 10/31/18 08:49 tetracycline Allergy Anaphylatic Verified 10/31/18 08:49 Shock PMH/Surg Hx/FS Hx/Imm Hx GI/ History: Gastroesophageal Reflux - Surgical History Surgical History: None - Family History Known Family History: Positive: Cardiac Disease, Hypertension, Diabetes, Other - [place] - Social History Alcohol Use: None Substance Use Type: None Smoking Status (MU): Never Smoked Tobacco Have You Smoked in the Last Year: No - Immunization History Most Recent Influenza Vaccination: none Review of Systems All Other Systems Reviewed And Are Negative: Yes Constitutional: Positive: Fatigue ENT: Positive: Nasal Discharge Respiratory: Positive: Cough Cardiovascular: Positive: Negative Gastrointestinal: Positive: Negative Physical Exam Triage Information Reviewed: Yes Appearance: Well-Appearing, No Pain Distress, Well-Nourished Vital Signs: Initial Vital Signs Temp 98.7 F 11/03/18 07:47 Pulse 100 11/03/18 07:47 Resp 18 11/03/18 07:47 BP 111/70 11/03/18 07:47 Pulse Ox 98 11/03/18 07:47 Vital Signs Reviewed: Yes Eyes: Positive: Conjunctiva Clear ENT: Positive: Hearing grossly normal, Pharynx normal, TMs normal Neck: Positive: Supple, Nontender, No Lymphadenopathy Respiratory Exam: Normal Cardiovascular Exam: Normal Abdomen Description: Positive: Soft Musculoskeletal: Positive: No Edema Neurological: Positive: Alert Psychological: Positive: Age Appropriate Behavior Skin: Negative: Rashes UC Diagnostic Evaluation - Laboratory O2 Sat by Pulse Oximetry: 98 Respiratory Course/Dx - Differential Dx/Diagnosis Provider Diagnosis: Upper respiratory infection Discharge - Sign-Out/Discharge Documenting (check all that apply): Patient Departure All imaging exams completed and their final reports reviewed: No Studies - Discharge Plan Condition: Stable Disposition: HOME Prescriptions: Albuterol HFA INHALER* [Ventolin HFA Inhaler*] 2 puff INH Q4H PRN #1 mdi PRN Reason: Shortness Of Breath Patient Education Materials: Upper Respiratory Infection (ED) Forms: *Gen. Provider Communication Referrals: Peña Duncan MD [Primary Care Provider] - If Needed Additional Instructions: YOUR SYMPTOMS ARE LIKELY VIRALLY MEDIATED AND SHOULD RESOLVE ON THEIR OWN WITH TIME. NO INDICATION FOR ANTIBIOTICS AT PRESENT. REST, HYDRATE, OTC MEDS NEEDED. FILL THE PREDNISONE YOU WERE GIVEN TO HELP WITH AIRWAY INFLAMMATION. WILL ALSO GIVE ALBUTEROL INHALER. SEEK FOLLOW-UP IF YOU ARE NOT IMPROVING OVER THE NEXT 1-2 WEEKS. - Billing Disposition and Condition Condition: STABLE Disposition: Home
== END 2018-11-03 08:55 | disposition home or self-care (01) ==
LOC: UCEAST 07:41
DX: J06.9 Acute upper respiratory infection, unspecified (principal); Z88.1 Allergy status to other antibiotic agents; Z88.8 Allergy status to other drugs, medicaments and biological substances
CPT/HCPCS: 99212; G0463